=== PATIENT | male | born 1985 | race Caucasian/White ===

== ENCOUNTER 2020-05-08 14:01 | Emergency (ER) | payer MEDICAID ==
[~2020-05-08] VITALS: Ht 177.8 cm; Wt 88.5 kg
[~2020-05-08 14:01] MED LIST: PENI250T91 PO
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
[2020-05-08 15:49] VITALS: BP 144/85
== END 2020-05-08 16:12 | disposition home or self-care (01) ==
LOC: ED 16:00
DX: L03.012 Cellulitis of left finger (principal); F17.200 Nicotine dependence, unspecified, uncomplicated
CPT/HCPCS: 10060; 99283

== ENCOUNTER 2020-05-11 21:25 | Emergency (ER) | payer MEDICAID, OTHER ==
[~2020-05-11] VITALS: Ht 182.9 cm; Wt 100.0 kg
[2020-05-11] MEDS ORDERED: ZIPRASIDONE 20 MG INJ IM ONE (21:30)
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
--- NOTE | 2020-05-12 01:59 | NUR ---
Pt out of restraints. Please see restraint paperwork for charting. Pt A&O x 4, Calm and cooperative. Pt able to stand up and walk. VSS Will monitor.
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
[2020-05-12 02:24] VITALS: BP 125/78
== END 2020-05-11 22:27 | disposition home or self-care (01) ==
LOC: ED 22:21
DX: S01.81XA Laceration without foreign body of other part of head, initial encounter (principal); F23 Brief psychotic disorder; F22 Delusional disorders; X58.XXXA Exposure to other specified factors, initial encounter; Y93.89 Activity, other specified; Y92.89 Other specified places as the place of occurrence of the external cause; Y99.8 Other external cause status
CPT/HCPCS: 12051; 96372; 99284; J3486